=== PATIENT | female | born 2000 | race Caucasian/White ===

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

== ENCOUNTER 2018-02-10 22:45 | Emergency (ER) | payer BC ==
[2018-02-10] MEDS ORDERED: MAGNE/ALUM HYDROXD 30 ML UCUP ONE (23:37)
[2018-02-10] MEDS ORDERED: PROMETHAZINE 25 MG/ML VIAL ONE (23:37)
[2018-02-10] MEDS ORDERED: LIDOCAINE VISCOUS 2% SOLN 15 ML UDC ONE (23:38)
[2018-02-10] MEDS ORDERED: NA CHLORIDE 0.9% 1,000 ML ONE (23:38)
[2018-02-10] MEDS ORDERED: PANTOPRAZOLE 40 MG INJ ONE (23:38)
[2018-02-10 23:45] LABS: Absolute Lymphocytes (CBC) 2.2 K/uL (0.7-4.9); Absolute Monocytes 0.6 K/uL (0.1-1.3); Absolute Neutrophil 4.4 K/uL (1.8-8.0); Basophils % 0.7 % (0-1.3); Eosinophils % 0.7 % (0-4.4); Hematocrit 37.6 % (36.0-45.0); MCH 30.1 pg (27.0-35.0); MPV 7.9 fL (7.6-11.3); Monocytes % 8.3 % (3.3-12.3); RBC Red Blood Cell Count 4.27 M/uL (3.86-4.86)
[2018-02-10 23:55] LABS: ALT/SGPT 15 U/L (12-78); AST/SGOT 16 U/L (15-37); Albumin 4.1 g/dL (3.4-5.0); Alkaline Phosphatase 53 U/L (45-117); BUN Blood Urea Nitrogen 9 mg/dL (7-18); Bicarbonate 26 mmol/L (21-32); Bilirubin Direct < 0.1 mg/dL (0-0.2); Bilirubin Total 0.3 mg/dL (0.2-1.0); Glucose Level 127 mg/dL (74-106); Lipase 226 U/L (73-393); Potassium 3.6 mmol/L (3.5-5.1); Sodium Level 139 mmol/L (136-145)
[2018-02-11] MEDS ORDERED: SUCRALFATE 1GM/10ML UCUP ONE
--- NOTE | 2018-02-11 00:32 | EDPHYS ---
Physician Documentation [facility] Name: Cadence Sommer Age: 17 yrs Sex: Female : 2000 Arrival Date: 02/10/2018 Time: 22:46 Bed 13 Private MD: ED Physician Víctor Sharpe HPI: 02/10 23:20 This 17 yrs old Female presents to ER via Ambulatory with complaints of cp Abdominal Pain. 23:20 The patient presents with abdominal pain in the epigastric area, in the upper abdomen. cp 23:20 Onset: The symptoms/episode began/occurred chronically. cp 23:20 The symptoms do not radiate. Associated signs and symptoms: Pertinent positives: cp nausea, Pertinent negatives: blood in stools, chest pain, constipation, diarrhea, dysuria, fever, vomiting. The symptoms are described as sharp. The patient has experienced similar episodes in the past, chronically. 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 - Social history:: Smoking status: Patient/guardian denies using tobacco, Patient/guardian denies using alcohol. - Ebola Screening: : No symptoms or risks identified at this time. ROS: 23:25 Constitutional: Negative for body aches, chills, fever, poor PO intake. cp 23:25 Eyes: Negative for injury, pain, redness, and discharge. cp 23:25 ENT: Negative for drainage from ear(s), ear pain, sore throat, difficulty swallowing, difficulty handling secretions. 23:25 Cardiovascular: Negative for chest pain, edema, palpitations. 23:25 Respiratory: Negative for cough, shortness of breath, wheezing. 23:25 Abdomen/GI: Positive for abdominal pain, nausea, Negative for vomiting, diarrhea, constipation, anorexia, dysphagia, black/tarry stool, rectal bleeding. 23:25 Back: Negative for pain at rest, pain with movement, radiated pain. 23:25 : Negative for urinary symptoms. 23:25 Skin: Negative for cellulitis, rash. 23:25 Neuro: Negative for altered mental status, headache, weakness. 23:25 All other systems are negative. Exam: 23:40 Constitutional: The patient appears in no acute distress, alert, awake, non-toxic, well cp developed, thin 23:40 Head/Face: Normocephalic, atraumatic. cp 23:40 Eyes: Periorbital structures: appear normal, Conjunctiva: normal, no exudate, no injection, Lids and lashes: appear normal, bilaterally. 23:40 ENT: External ear(s): are unremarkable, Ear canal(s): are normal, clear, TM's: dullness, bilaterally, Nose: is normal, Mouth: Lips: moist, Oral mucosa: pink and intact, moist, Posterior pharynx: is normal, airway is patent, no erythema, no exudate. 23:40 Chest/axilla: Inspection: normal, Palpation: is normal, no crepitus, no tenderness. 23:40 Cardiovascular: Rate: tachycardic, Rhythm: regular. 23:40 Respiratory: the patient does not display signs of respiratory distress, Respirations: normal, no use of accessory muscles, no retractions, no splinting, no tachypnea, labored breathing, is not present, Breath sounds: are clear throughout, no decreased breath sounds, no stridor, no wheezing. 23:40 Abdomen/GI: Inspection: abdomen appears normal, Bowel sounds: active, all quadrants, Palpation: soft, in all quadrants, moderate abdominal tenderness, in the epigastric area, right upper quadrant and left upper quadrant, rebound tenderness, is not appreciated, voluntary guarding, is elicited in the epigastric area, right upper quadrant and left upper quadrant. 23:40 Back: pain, is absent, ROM is normal. 23:40 Skin: cellulitis, is not appreciated, no rash present. 23:40 Neuro: Orientation: to person, place \T\ time. Mentation: lucid, able to follow commands, Cerebellar function: is grossly normal, Motor: moves all fours, strength is normal, Sensation: no obvious gross deficits. Vital Signs: 23:07 BP 130 / 59; Pulse 103; Resp 18; Temp 97.8; Pulse Ox 98% on R/A; Weight 47.63 kg (R); jb4 Height 5 ft. 3 in. (160.02 cm) (R); Pain 10/10; 10/01 00:42 BP 115 / 81; Pulse 78; Resp 18; Pulse Ox 100% on R/A; jb4 02/10 23:07 Body Mass Index 18.60 (47.63 kg, 160.02 cm) jb4 MDM: 02/10 22:56 Patient medically screened. [facility] 02/11 00:00 Differential diagnosis: cholecystitis, Cholelithiasis, gastritis, pancreatitis, Peptic cp Ulcer Disease, Perf. Duodenal Ulcer, Perf. Gastric Ulcer, Ureterolithiasis, urinary tract infection. 00:29 ED course: VSS. Pain markedly improved, labs reviewed and negative for significant cp findings. 00:30 Data reviewed: vital signs, nurses notes, lab test result(s), and as a result, I will cp discharge patient. 00:30 Counseling: I had a detailed discussion with the patient and/or guardian regarding: the cp historical points, exam findings, and any diagnostic results supporting the discharge/admit diagnosis, lab results, to return to the emergency department if symptoms worsen or persist or if there are any questions or concerns that arise at home. Response to treatment: the patient's symptoms have markedly improved after treatment. 02/10 23:11 Order name: Basic Metabolic Panel; Complete Time: 00:08 cp 02/11 00:08 Interpretation: Normal except: GLUC 127. cp 02/10 23:11 Order name: CBC with Diff; Complete Time: 00:08 cp 02/10 23:11 Order name: Creatinine for Radiology; Complete Time: 00:08 cp 02/10 23:11 Order name: Hepatic Function; Complete Time: 00:08 cp 02/11 00:08 Interpretation: Normal except: GLOB 3.9. cp 02/10 23:11 Order name: Lipase; Complete Time: 00:08 cp 02/10 23:25 Order name: Urine Dipstick--Ancillary (enter results) ms 02/10 23:11 Order name: IV Saline Lock; Complete Time: 23:26 cp 02/10 23:25 Order name: Urine --Ancillary (enter results) ms 02/10 23:11 Order name: Labs collected and sent; Complete Time: 23:26 cp 02/10 23:11 Order name: Urine Dipstick-Ancillary (obtain specimen); Complete Time: 23: cp 02/10 23:11 Order name: Urine Test (obtain specimen); Complete Time: 23:26 cp 02/11 00:09 Order name: PO challenge; Complete Time: 00:31 cp Administered Medications: 02/10 23:49 Drug: GI Cocktail without - (Maalox Suspension 30 ml, Lidocaine Liquid 2 % 15 jb4 ml) Route: PO; 02/11 00:11 Follow up: Response: No adverse reaction; Pain is decreased 4 02/10 23:49 Drug: NS 0.9% 1000 ml Route: IV; Rate: 1 bolus; Site: right antecubital; 4 02/11 00:46 Follow up: Response: No adverse reaction; IV Status: Completed infusion 4 02/10 23:50 Drug: Phenergan 25 mg Route: IVP; Site: right antecubital; jb4 02/11 00:11 Follow up: Response: No adverse reaction 4 02/10 23:50 Drug: ProTONIX 40 mg Route: IVP; Site: right antecubital; jb4 02/11 00:11 Follow up: Response: No adverse reaction; Pain is decreased 4 00:07 Drug: CarafATE 1 grams Route: PO; jb4 00:46 Follow up: Response: No adverse reaction jb4 00:41 Drug: Bentyl 20 mg Route: PO; jb4 00:46 Follow up: Response: No adverse reaction 4 Disposition: 06:43 Co-signature as Attending Physician, Víctor Sharpe MD I agree with the assessment and [facility] plan of care. Disposition: 02/11/18 00:31 Discharged to Home. Impression: Upper abdominal pain, unspecified. - Condition is Stable. - Discharge Instructions: Gastritis, Adult. - Prescriptions for Carafate 1 gram Oral Tablet - take 1 tablet by ORAL route 4 times per day take on an empty stomach, beginning on waking and last dose at bedtime. dissolve tablet in small amount warm water prior to ingestion; 100 tablet. promethazine 25 mg Oral Tablet - take 1 tablet by ORAL route every 6 hours As needed; 20 tablet. - Medication Reconciliation Form, Thank You Letter, Antibiotic Education, Prescription Opioid Use form. - Follow up: Private Physician; When: as scheduled for HIDA scan. - Problem is an acute exacerbation. - Symptoms have improved. Signatures: Dispatcher [employer] EDVíctor Ken MD MD cha Page, Corey, PA PA cp Bryson, James, RN RN jb4 Corrections: (The following items were deleted from the chart) 00:47 00:31 02/11/2018 00:31 Discharged to Home. Impression: Upper abdominal pain, jb4 unspecified. Condition is Stable. Forms are Medication Reconciliation Form, Thank You Letter, Antibiotic Education, Prescription Opioid Use. Follow up: Private Physician; When: as scheduled for HIDA scan. Problem is an acute exacerbation. Symptoms have improved. cp
--- NOTE | 2018-02-11 00:32 | ER ---
Nurse's Notes [facility] Name: Cadence Sommer Age: 17 yrs Sex: Female : 2000 Arrival Date: 02/10/2018 Time: 22:46 Bed 13 Private MD: Diagnosis: Upper abdominal pain, unspecified Presentation: 02/10 23:02 Presenting complaint: Patient states: I am fasting for a hida scan tomorrow. I have jb4 chronic gastritis and have taken my GI cocktail as prescribed and zofran and neither are helping. Transition of care: patient was not received from another setting of care. Onset of symptoms was February 10, 2018. Risk Assessment: Do you want to hurt yourself or someone else? Patient reports no desire to harm self or others. Initial Sepsis Screen: Does the patient meet any 2 criteria? HR > 90 bpm. No. Patient's initial sepsis screen is negative. Does the patient have a suspected source of infection? No. Patient's initial sepsis screen is negative. Care prior to arrival: None. 23:02 Method Of Arrival: Ambulatory jb4 23:02 Acuity: SYLVIE 3 jb4 Triage Assessment: 23:07 General: Appears in no apparent distress. uncomfortable, Behavior is calm, cooperative, jb4 appropriate for age. Pain: Complains of pain in abdomen Pain does not radiate. Pain currently is 10 out of 10 on a pain scale. at worst was 10 out of 10 on a pain scale. Quality of pain is described as sharp, Pain began 1 day ago. Is continuous. EENT: No signs and/or symptoms were reported regarding the EENT system. Neuro: Level of Consciousness is awake, alert, obeys commands, Oriented to person, place, time, situation. Cardiovascular: Patient's skin is warm and dry. Respiratory: Airway is patent Respiratory effort is even, unlabored, Respiratory pattern is regular, symmetrical. GI: Abdomen is flat, non-distended, Bowel sounds present X 4 quads. Abdomen is tender to palpation X 4 quads. : No signs and/or symptoms were reported regarding the genitourinary system. Derm: Skin is intact, Skin is pink, warm \T\ dry. Musculoskeletal: Circulation, motion, and sensation intact. 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 - Social history:: Smoking status: Patient/guardian denies using tobacco, Patient/guardian denies using alcohol. - Ebola Screening: : No symptoms or risks identified at this time. Screenin:10 Abuse screen: Denies threats or abuse. Nutritional screening: No deficits noted. jb4 Tuberculosis screening: No symptoms or risk factors identified. Fall Risk None identified. Assessment: 23:10 General: see triage assesment.. jb4 02/11 00:42 Reassessment: Patient appears in no apparent distress at this time. Patient and/or jb4 family updated on plan of care and expected duration. Pain level reassessed. Patient is alert, oriented x 3, equal unlabored respirations, skin warm/dry/pink. Patient states feeling better. Vital Signs: 02/10 23:07 BP 130 / 59; Pulse 103; Resp 18; Temp 97.8; Pulse Ox 98% on R/A; Weight 47.63 kg (R); jb4 Height 5 ft. 3 in. (160.02 cm) (R); Pain 02/20; 02/11 00:42 BP 115 / 81; Pulse 78; Resp 18; Pulse Ox 100% on R/A; jb4 02/10 23:07 Body Mass Index 18.60 (47.63 kg, 160.02 cm) jb4 ED Course: 02/10 22:46 Patient arrived in ED. ds1 22:53 Víctor Schneider PA is PHCP. cp 22:53 Víctor Sharpe MD is Attending Physician. cp 22:57 Daquan Sykes, MARGARET is Primary Nurse. jb4 23:06 Triage completed. jb4 23:07 Arm band placed on left wrist. jb4 23:10 Patient has correct armband on for positive identification. Placed in gown. Bed in low jb4 position. Call light in reach. Side rails up X 1. Pulse ox on. NIBP on. 23:10 Inserted saline lock: 20 gauge 22 gauge in right antecubital area, using aseptic jb4 technique. Blood collected. 23:10 Initial lab(s) drawn, by me, sent to lab. jb4 02/11 00:42 No provider procedures requiring assistance completed. IV discontinued, intact, jb4 bleeding controlled. Administered Medications: 02/10 23:49 Drug: GI Cocktail without - (Maalox Suspension 30 ml, Lidocaine Liquid 2 % 15 jb4 ml) Route: PO; 02/11 00:11 Follow up: Response: No adverse reaction; Pain is decreased jb4 02/10 23:49 Drug: NS 0.9% 1000 ml Route: IV; Rate: 1 bolus; Site: right antecubital; jb4 02/11 00:46 Follow up: Response: No adverse reaction; IV Status: Completed infusion jb4 02/10 23:50 Drug: Phenergan 25 mg Route: IVP; Site: right antecubital; jb4 02/11 00:11 Follow up: Response: No adverse reaction jb4 02/10 23:50 Drug: ProTONIX 40 mg Route: IVP; Site: right antecubital; jb4 02/11 00:11 Follow up: Response: No adverse reaction; Pain is decreased jb4 00:07 Drug: CarafATE 1 grams Route: PO; jb4 00:46 Follow up: Response: No adverse reaction jb4 00:41 Drug: Bentyl 20 mg Route: PO; jb4 00:46 Follow up: Response: No adverse reaction jb4 Outcome: 00:31 Discharge ordered by . cecilia 00:42 Discharged to home ambulatory. jb4 00:42 Condition: stable 00:42 Discharge instructions given to patient, family, Instructed on discharge instructions, follow up and referral plans. medication usage, Demonstrated understanding of instructions, follow-up care, medications, Prescriptions given X 2. 00:47 Patient left the ED. jb4 Signatures: Zhanna Ye ds1 Víctor Schneider PA PA cp Daquan Sykes, RN RN jb4 Corrections: (The following items were deleted from the chart) 00:11 00:10 Response: No adverse reaction jb4 jb4 00:44 02/10 23:10 Inserted saline lock: 20 gauge 22 gauge in right antecubital area, using jb4 aseptic technique. jb4 02/11 00:44 02/10 23:46 Initial lab(s) drawn, by pr, sent to lab. jb4 jb4 02/11 00:45 02/10 23:10 Discharged to home ambulatory, jb4 jb4 02/11 23:10 Condition: stable jb4 jb4 02/11 23:10 Discharge instructions given to patient, family, Instructed on discharge jb4 instructions, follow up and referral plans. medication usage, Demonstrated understanding of instructions, follow-up care, medications, Prescriptions given X 2, jb4
[2018-02-11] MEDS ORDERED: DICYCLOMINE HCL 10 MG CAP ONE (00:39)
[2018-02-11 01:32] VITALS: TEMP 97.8
[2018-02-11 01:36] VITALS: BP 115/81; O2SAT 100
[2018-02-11 01:39] LABS: Urine Blood NEGATIVE (NEG); Urine Glucose NEGATIVE (NEG); Urine Protein TRACE (NEG)
== END 2018-02-11 00:47 | disposition home or self-care (01) ==
LOC: ER 22:45
DX: R10.10 Upper abdominal pain, unspecified (principal)
CPT/HCPCS: 36415; 80048; 80076; 81003; 81025; 83690; 85025; 96361; 96374; 96375; 99284; C9113; J2550; J7030

== ENCOUNTER 2018-03-22 18:46 | Emergency (ER) | payer BC ==
[2018-03-22] MEDS ORDERED: LIDOCAINE VISCOUS 2% SOLN 15 ML UDC ONE (20:20)
[2018-03-22] MEDS ORDERED: MAGNE/ALUM HYDROXD 30 ML UCUP ONE (20:20)
[2018-03-22 20:38] LABS: Absolute Lymphocytes (CBC) 1.9 K/uL (0.7-4.9); Absolute Monocytes 0.6 K/uL (0.1-1.3); Absolute Neutrophil 4.3 K/uL (1.8-8.0); Basophils % 0.5 % (0-1.3); Eosinophils % 0.8 % (0-4.4); Hematocrit 35.4 % (36.0-45.0); Lymphocytes % 28.3 % (15.3-44.8); MCH 29.9 pg (27.0-35.0); MCV 87.7 fL (80-100); MPV 7.8 fL (7.6-11.3); Monocytes % 8.3 % (3.3-12.3); RBC Red Blood Cell Count 4.04 M/uL (3.86-4.86)
[2018-03-22 20:49] LABS: Urine Blood 2+ (NEG); Urine Glucose NEGATIVE (NEG); Urine Protein NEGATIVE (NEG); Urine Specific Gravity >1.030 (1.005-1.030); Urine pH 5.5 (5.0-7.0)
[2018-03-22 20:56] LABS: ALT/SGPT 14 U/L (12-78); AST/SGOT 16 U/L (15-37); Albumin 3.9 g/dL (3.4-5.0); Alkaline Phosphatase 51 U/L (45-117); BUN Blood Urea Nitrogen 8 mg/dL (7-18); Bicarbonate 28 mmol/L (21-32); Bilirubin Direct 0.1 mg/dL (0-0.2); Bilirubin Total 0.2 mg/dL (0.2-1.0); Glucose Level 82 mg/dL (74-106); Lipase 185 U/L (73-393); Potassium 3.6 mmol/L (3.5-5.1); Protein, Total 7.7 g/dL (6.4-8.2); Sodium Level 143 mmol/L (136-145)
--- NOTE | 2018-03-22 21:00 | ER ---
Nurse's Notes [facility] Name: Cadence Sommer Age: 17 yrs Sex: Female : 2000 Arrival Date: 03/22/2018 Time: 18:50 Bed 20 Private MD: Bernardo Fernandez S Diagnosis: Unspecified abdominal pain Presentation: 03/22 18:57 Presenting complaint: Patient states: Chronic abdominal pain and nausea. Transition of care: patient was not received from another setting of care. Onset of symptoms was March 19, 2018. Risk Assessment: Do you want to hurt yourself or someone else? Patient reports no desire to harm self or others. Initial Sepsis Screen: Does the patient meet any 2 criteria? No. Patient's initial sepsis screen is negative. Does the patient have a suspected source of infection? No. Patient's initial sepsis screen is negative. Care prior to arrival: None. 18:57 Method Of Arrival: Ambulatory aj 18:57 Acuity: SYLVIE 3 aj Triage Assessment: 19:00 General: Appears in no apparent distress. comfortable, Behavior is calm, cooperative, aj appropriate for age. Pain: Complains of pain in right upper quadrant and left upper quadrant. Neuro: Level of Consciousness is awake, alert, obeys commands, Oriented to person, place, time, situation, Appropriate for age. Respiratory: Airway is patent Respiratory effort is even, unlabored, Respiratory pattern is regular, symmetrical. GI: Abdomen is flat, Reports upper abdominal pain, nausea. Derm: Skin is intact, is healthy with good turgor, Skin is pink, warm \T\ dry. normal. 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 - Social history:: Smoking status: Patient/guardian denies using tobacco. - Ebola Screening: : Patient negative for fever greater than or equal to 101.5 degrees Fahrenheit, and additional compatible Ebola Virus Disease symptoms Patient denies exposure to infectious person Patient denies travel to an Ebola-affected area in the 21 days before illness onset No symptoms or risks identified at this time. Screenin:48 Abuse screen: Denies threats or abuse. Nutritional screening: No deficits noted. jb4 Tuberculosis screening: No symptoms or risk factors identified. Fall Risk None identified. Assessment: 19:48 General: Appears in no apparent distress. comfortable, Behavior is calm, cooperative, jb4 appropriate for age. Pain: Complains of pain in left upper quadrant Pain does not radiate. Neuro: Level of Consciousness is awake, alert, obeys commands, Oriented to person, place, time, situation. Cardiovascular: Patient's skin is warm and dry. Respiratory: Airway is patent Respiratory effort is even, unlabored, Respiratory pattern is regular, symmetrical. GI: Abdomen is flat, non-distended, Bowel sounds present X 4 quads. Abd is soft X 4 quads Abd is non tender in umbilical area, right upper quadrant, right lower quadrant and left lower quadrant Abdomen is tender to palpation in left upper quadrant. : No signs and/or symptoms were reported regarding the genitourinary system. EENT: No signs and/or symptoms were reported regarding the EENT system. Derm: Skin is intact, Skin is pink, warm \T\ dry. Musculoskeletal: Circulation, motion, and sensation intact. 20:41 Reassessment: Patient appears in no apparent distress at this time. Patient and/or jb4 family updated on plan of care and expected duration. Pain level reassessed. Patient is alert, oriented x 3, equal unlabored respirations, skin warm/dry/pink. 21:36 Reassessment: Patient appears in no apparent distress at this time. Patient and/or jb4 family updated on plan of care and expected duration. Pain level reassessed. Patient is alert, oriented x 3, equal unlabored respirations, skin warm/dry/pink. discussed D/c, F/u with pt, denies questions or concerns. Vital Signs: 19:00 BP 122 / 69; Pulse 77; Resp 19; Temp 97.8; Pulse Ox 97% on R/A; Weight 48.08 kg; Height aj 5 ft. 3 in. (160.02 cm); 20:41 BP 112 / 68; Pulse 70; Resp 16; Pulse Ox 99% on R/A; jb4 21:36 BP 112 / 70; Pulse 64; Resp 18; Pulse Ox 98% on R/A; jb4 19:00 Body Mass Index 18.78 (48.08 kg, 160.02 cm) aj ED Course: 18:50 Patient arrived in ED. mr 18:51 Bernardo Fernandez MD is Private Physician. mr 18:58 Triage completed. aj 19:00 Arm band placed on left wrist. Patient placed in waiting room, Patient notified of wait aj time. 19:46 Mahad Cueto, RAUL is PHCP. pm1 19:46 Basil Swan MD is Attending Physician. pm1 19:48 Daquan Sykes RN is Primary Nurse. jb4 19:48 Patient has correct armband on for positive identification. Pulse ox on. NIBP on. jb4 20:00 Missed attempt(s): 20 gauge in right forearm. jb4 20:10 Initial lab(s) drawn, by nh, sent to lab. Inserted saline lock: 20 gauge in left jb4 antecubital area, using aseptic technique. Blood collected. 20:59 Bsail Wallace MD is Referral Physician. pm1 21:36 No provider procedures requiring assistance completed. IV discontinued, intact, jb4 bleeding controlled. Administered Medications: 20:10 Drug: GI Cocktail without - (Maalox Suspension 30 ml, Lidocaine Liquid 2 % 15 jb4 ml) Route: PO; 21:13 Follow up: Response: No adverse reaction; Pain is decreased jb4 21:22 Drug: Pepcid 20 mg Route: IVP; Site: left antecubital; jb4 21:23 Follow up: Response: No adverse reaction jb4 21:23 Drug: CarafATE 1 grams Route: PO; jb4 21:23 Follow up: Response: No adverse reaction jb4 Outcome: 20:59 Discharge ordered by . pm1 21:38 Discharged to home ambulatory. jb4 21:38 Condition: stable 21:38 Discharge instructions given to patient, Instructed on discharge instructions, follow up and referral plans. medication usage, Demonstrated understanding of instructions, follow-up care, medications, Prescriptions given X 1. 21:39 Patient left the ED. jb4 Signatures: Lizeth Alas RN RN aj Rivera, Mary mr Mahad Cueto, SPEECH THERAPY DIRECTOR SPEECH THERAPY DIRECTOR pm1 Daquan Sykes RN RN jb4 Corrections: (The following items were deleted from the chart) 19:01 19:00 Arm band placed on left wrist. Patient placed in an exam room, chet rosenberg
--- NOTE | 2018-03-22 21:00 | EDPHYS ---
Physician Documentation [facility] Name: Cadence Sommer Age: 17 yrs Sex: Female : 2000 Arrival Date: 03/22/2018 Time: 18:50 Bed 20 Private MD: Bernardo Fernandez S ED Physician Sosa, Basil HPI: 03/22 19:56 This 17 yrs old Female presents to ER via Ambulatory with complaints of pm1 Abdominal Pain. 19:56 The patient presents with abdominal pain in the epigastric area. Onset: The pm1 symptoms/episode began/occurred 8 month(s) ago. The symptoms do not radiate. Associated signs and symptoms: Pertinent negatives: nausea, vomiting, and diarrhea, chest pain, constipation, fever, shortness of breath. The symptoms are described as achy, burning. Modifying factors: The symptoms are alleviated by GI cocktail in the ER. Her home prescription GI Cocktail does not work at all. the symptoms are aggravated by food. Severity of pain: in the emergency department the pain is unchanged. The patient has experienced similar episodes in the past, chronically. The patient has been recently seen by a physician: Dr. Wallace. Patient has had a negative HIDA scan less than a month ago. EGD shows chronic gastritis. 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 - Social history:: Smoking status: Patient/guardian denies using tobacco. - Ebola Screening: : Patient negative for fever greater than or equal to 101.5 degrees Fahrenheit, and additional compatible Ebola Virus Disease symptoms Patient denies exposure to infectious person Patient denies travel to an Ebola-affected area in the 21 days before illness onset No symptoms or risks identified at this time. ROS: 19:56 Constitutional: Negative for fever, chills, and weight loss, Eyes: Negative for injury, pm1 pain, redness, and discharge, ENT: Negative for injury, pain, and discharge, Neck: Negative for injury, pain, and swelling, Cardiovascular: Negative for chest pain, palpitations, and edema, Respiratory: Negative for shortness of breath, cough, wheezing, and pleuritic chest pain. 19:56 Back: Negative for injury and pain, : Negative for injury, bleeding, discharge, and swelling, MS/Extremity: Negative for injury and deformity, Skin: Negative for injury, rash, and discoloration, Neuro: Negative for headache, weakness, numbness, tingling, and seizure. 19:56 Abdomen/GI: Positive for abdominal pain, Negative for nausea, vomiting, and diarrhea. Exam: 19:56 Constitutional: This is a well developed, well nourished patient who is awake, alert, pm1 and in no acute distress. Head/Face: Normocephalic, atraumatic. Eyes: Pupils equal round and reactive to light, extra-ocular motions intact. Lids and lashes normal. Conjunctiva and sclera are non-icteric and not injected. Cornea within normal limits. Periorbital areas with no swelling, redness, or edema. ENT: Nares patent. No nasal discharge, no septal abnormalities noted. Tympanic membranes are normal and external auditory canals are clear. Oropharynx with no redness, swelling, or masses, exudates, or evidence of obstruction, uvula midline. Mucous membranes moist. Neck: Trachea midline, no thyromegaly or masses palpated, and no cervical lymphadenopathy. Supple, full range of motion without nuchal rigidity, or vertebral point tenderness. No Meningismus. Chest/axilla: Normal chest wall appearance and motion. Nontender with no deformity. No lesions are appreciated. Cardiovascular: Regular rate and rhythm with a normal S1 and S2. No gallops, murmurs, or rubs. Normal PMI, no JVD. No pulse deficits. Respiratory: Lungs have equal breath sounds bilaterally, clear to auscultation and percussion. No rales, rhonchi or wheezes noted. No increased work of breathing, no retractions or nasal flaring. 19:56 Back: No spinal tenderness. No costovertebral tenderness. Full range of motion. Skin: Warm, dry with normal turgor. Normal color with no rashes, no lesions, and no evidence of cellulitis. MS/ Extremity: Pulses equal, no cyanosis. Neurovascular intact. Full, normal range of motion. 19:56 Abdomen/GI: Inspection: abdomen appears normal, Bowel sounds: normal, Palpation: abdomen is soft and non-tender, mass, is not appreciated, rebound tenderness, is not appreciated. 19:56 Neuro: Orientation: is normal, Motor: is normal, Sensation: is normal, no obvious gross deficits. Vital Signs: 19:00 BP 122 / 69; Pulse 77; Resp 19; Temp 97.8; Pulse Ox 97% on R/A; Weight 48.08 kg; Height aj 5 ft. 3 in. (160.02 cm); 20:41 BP 112 / 68; Pulse 70; Resp 16; Pulse Ox 99% on R/A; jb4 21:36 BP 112 / 70; Pulse 64; Resp 18; Pulse Ox 98% on R/A; jb4 19:00 Body Mass Index 18.78 (48.08 kg, 160.02 cm) aj MDM: 19:48 Patient medically screened. pm1 19:54 Data reviewed: vital signs. Data interpreted: Pulse oximetry: on room air is 97 %. pm1 Interpretation: normal. 20:58 Counseling: I had a detailed discussion with the patient and/or guardian regarding: the pm1 historical points, exam findings, and any diagnostic results supporting the discharge/admit diagnosis, lab results, the need for outpatient follow up, for definitive care, a bid writer, to return to the emergency department if symptoms worsen or persist or if there are any questions or concerns that arise at home. 03/22 19:55 Order name: Basic Metabolic Panel; Complete Time: 20:58 pm1 03/22 19:55 Order name: CBC with Diff; Complete Time: 20:53 pm1 03/22 19:55 Order name: Hepatic Function; Complete Time: 20:58 pm1 03/22 19:55 Order name: Lipase; Complete Time: 20:58 pm1 03/22 20:33 Order name: Urine Dipstick--Ancillary (enter results); Complete Time: 20:53 ms 03/22 20:33 Order name: Urine --Ancillary (enter results); Complete Time: 20:53 ms 03/22 19:55 Order name: IV Saline Lock; Complete Time: 20:32 pm1 03/22 19:55 Order name: Labs collected and sent; Complete Time: 20:32 pm1 03/22 19:55 Order name: Urine Dipstick-Ancillary (obtain specimen); Complete Time: 20:04 pm1 03/22 19:55 Order name: Urine Test (obtain specimen); Complete Time: 20:04 pm1 Administered Medications: 20:10 Drug: GI Cocktail without - (Maalox Suspension 30 ml, Lidocaine Liquid 2 % 15 jb4 ml) Route: PO; 21:13 Follow up: Response: No adverse reaction; Pain is decreased jb4 21:22 Drug: Pepcid 20 mg Route: IVP; Site: left antecubital; jb4 21:23 Follow up: Response: No adverse reaction jb4 21:23 Drug: CarafATE 1 grams Route: PO; jb4 21:23 Follow up: Response: No adverse reaction jb4 Disposition: 03/23 04:03 Co-signature as Attending Physician, Basil Swan MD I agree with the assessment and wa plan of care. Disposition: 03/22/18 20:59 Discharged to Home. Impression: Unspecified abdominal pain. - Condition is Stable. - Discharge Instructions: Abdominal Pain, Adult. - Prescriptions for Pepcid 20 mg Oral Tablet - take 1 tablet by ORAL route every 12 hours for 10 days; 20 tablet. - Medication Reconciliation Form, Thank You Letter, Antibiotic Education form. - Follow up: Emergency Department; When: As needed; Reason: Worsening of condition. Follow up: Basil Wallace MD; When: 2 - 3 days; Reason: Recheck today's complaints, Continuance of care, Re-evaluation by your physician. - Problem is new. - Symptoms have improved. Signatures: Dispatcher [employer] Lizeth Monique RN RN aj Marinas, Patrick, NP [employer] SALES BEAUTY ADVISOR pm1 Daquan Sykes RN RN [email or web address] Basil Swan MD MD wa Corrections: (The following items were deleted from the chart) 03/22 21:39 20:59 03/22/2018 20:59 Discharged to Home. Impression: Unspecified abdominal pain. jb4 Condition is Stable. Forms are Medication Reconciliation Form, Thank You Letter, Antibiotic Education, Prescription Opioid Use. Follow up: Emergency Department; When: As needed; Reason: Worsening of condition. Follow up: Basil Wallace; When: 2 - 3 days; Reason: Recheck today's complaints, Continuance of care, Re-evaluation by your physician. Problem is new. Symptoms have improved. pm1
[2018-03-22] MEDS ORDERED: SUCRALFATE 1 GM TABLET ONE (21:24)
[2018-03-22] MEDS ORDERED: FAMOTIDINE 20 MG/2 ML VIAL IV ONE (21:26)
[2018-03-23 00:57] VITALS: TEMP 97.8
[2018-03-23 00:59] VITALS: BP 112/70; O2SAT 98
== END 2018-03-22 21:39 | disposition home or self-care (01) ==
LOC: ER 18:46
DX: R10.13 Epigastric pain (principal)
CPT/HCPCS: 36415; 80048; 80076; 81003; 81025; 83690; 85025; 96374; 99284

== ENCOUNTER 2018-04-09 20:40 | Emergency (ER) | payer BC ==
--- NOTE | 2018-04-09 22:59 | ER ---
Nurse's Notes [facility] Name: Cadence Sommer Age: 18 yrs Sex: Female : 2000 Arrival Date: 04/09/2018 Time: 20:42 Bed 20 Private MD: Bernardo Fenrandez S Diagnosis: Pain in right wrist;Chronic pain syndrome Presentation: 04/09 21:23 Presenting complaint: Patient states: "I came here in June because I broke my aj1 wrist. I was in a cast until July. In January my hands was still hurting, I saw a hand specialist and my wrist was still broken. I just got my cast off at the beginning of March. Now my wrist is swollen and it hurts to hold a fork or anything. I have osteogenesis imperfecta so I break my bones doing almost nothing" Reports pain to right wrist. Transition of care: patient was not received from another setting of care. Onset of symptoms was April 09, 2018. Risk Assessment: Do you want to hurt yourself or someone else? Patient reports no desire to harm self or others. Initial Sepsis Screen: Does the patient meet any 2 criteria? No. Patient's initial sepsis screen is negative. Does the patient have a suspected source of infection? No. Patient's initial sepsis screen is negative. Care prior to arrival: None. 21:23 Method Of Arrival: Ambulatory aj1 21:23 Acuity: SYLVIE 4 aj1 Triage Assessment: 21:29 General: Appears in no apparent distress. uncomfortable, Behavior is calm, cooperative, aj1 appropriate for age. Pain: Complains of pain in right wrist Pain currently is 6 out of 10 on a pain scale. Neuro: Level of Consciousness is awake, alert, obeys commands. Cardiovascular: Patient's skin is warm and dry. Respiratory: Airway is patent Respiratory effort is even, unlabored, Respiratory pattern is regular, symmetrical. Musculoskeletal: Range of motion: intact in all extremities. Injury Description: Patient denies injury. 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 - Social history:: Smoking status: Patient/guardian denies using tobacco. - Ebola Screening: : Patient denies travel to an Ebola-affected area in the 21 days before illness onset. Screenin:05 Abuse screen: Denies threats or abuse. Denies injuries from another. Nutritional ak1 screening: No deficits noted. Tuberculosis screening: No symptoms or risk factors identified. Fall Risk None identified. Assessment: 22:05 General: Appears in no apparent distress. Behavior is calm, cooperative. Pain: ak1 Complains of pain in right wrist. Neuro: No deficits noted. Cardiovascular: No deficits noted. Respiratory: No deficits noted. GI: No signs and/or symptoms were reported involving the gastrointestinal system. : No signs and/or symptoms were reported regarding the genitourinary system. EENT: No signs and/or symptoms were reported regarding the EENT system. Derm: No signs and/or symptoms reported regarding the dermatologic system. Musculoskeletal: Reports pain in right wrist pt seen by her specialist yesterday was told she needed pain management with no xrays done. pt requested xrays tonight. Vital Signs: 21:29 BP 118 / 79; Pulse 83; Resp 18; Temp 98.2; Pulse Ox 100% on R/A; Weight 48.53 kg (R); aj1 Height 5 ft. 3 in. (160.02 cm) (R); Pain 6/10; 21:29 Body Mass Index 18.95 (48.53 kg, 160.02 cm) aj1 ED Course: 20:42 Patient arrived in ED. es 20:43 Bernardo Fernandez MD is Private Physician. es 21:28 Triage completed. aj1 21:29 Arm band placed on Patient placed in waiting room, Patient notified of wait time. aj1 22:02 Faraz Robertson, MARGARET is Primary Nurse. la1 22:05 Patient has correct armband on for positive identification. Bed in low position. Call ak1 light in reach. Adult w/ patient. 22:11 Zoran Yates MD is Attending Physician. gs 22:36 Wrist Right 3 View XRAY In Process Unspecified. EDMS 23:07 No provider procedures requiring assistance completed. Patient did not have IV access la1 during this emergency room visit. Administered Medications: No medications were administered Outcome: 22:58 Discharge ordered by . paolo 23:07 Discharged to home ambulatory. la1 23:07 Condition: stable 23:07 Discharge instructions given to patient, friend, Instructed on discharge instructions, follow up and referral plans. Demonstrated understanding of instructions, follow-up care. 23:07 Patient left the ED. la1 Signatures: Dispatcher [employer] Daisy Sneed RN RN aj1 Shilpa Land Lee, RN RN la1 Vicky Miller RN RN ak1 Zoran Yates MD MD gs
--- NOTE | 2018-04-09 22:59 | EDPHYS ---
Physician Documentation [facility] Name: Cadence Sommer Age: 18 yrs Sex: Female : 2000 Arrival Date: 04/09/2018 Time: 20:42 Bed 20 Private MD: Bernardo Fernandez S ED Physician Zoran Yates HPI: 04/09 22:55 This 18 yrs old Female presents to ER via Ambulatory with complaints of Wrist gs Injury. 22:55 The patient or guardian reports pain. Context: chronic, previous fracture. Onset: The gs symptoms/episode began/occurred 2 week(s) ago. Modifying factors: The symptoms are alleviated by nothing, the symptoms are aggravated by nothing. The patient has experienced similar episodes in the past, chronically. 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 - Social history:: Smoking status: Patient/guardian denies using tobacco. - Ebola Screening: : Patient denies travel to an Ebola-affected area in the 21 days before illness onset. ROS: 22:55 All other systems are negative. gs Exam: 22:55 Cardiovascular: Regular rate and rhythm with a normal S1 and S2. No gallops, murmurs, gs or rubs. Normal PMI, no JVD. No pulse deficits. Respiratory: Lungs have equal breath sounds bilaterally, clear to auscultation and percussion. No rales, rhonchi or wheezes noted. No increased work of breathing, no retractions or nasal flaring. Abdomen/GI: Soft, non-tender, with normal bowel sounds. No distension or tympany. No guarding or rebound. No evidence of tenderness throughout. 22:55 Constitutional: The patient appears alert, awake. 22:55 Musculoskeletal/extremity: Extremities: noted in the dorsal aspect of right wrist: tenderness, distal ulna tender no swelling, ROM: intact in all extremities, Circulation is intact in all extremities. Vital Signs: 21:29 BP 118 / 79; Pulse 83; Resp 18; Temp 98.2; Pulse Ox 100% on R/A; Weight 48.53 kg (R); aj1 Height 5 ft. 3 in. (160.02 cm) (R); Pain 6/10; 21:29 Body Mass Index 18.95 (48.53 kg, 160.02 cm) aj1 MDM: 22:40 Patient medically screened. 22:55 Data reviewed: vital signs, nurses notes. Counseling: I had a detailed discussion with gs the patient and/or guardian regarding: the historical points, exam findings, and any diagnostic results supporting the discharge/admit diagnosis, radiology results, the need for outpatient follow up, a hand specialist, a orthopedic surgeon. 04/09 21:32 Order name: Wrist Right 3 View XRAY aj1 Administered Medications: No medications were administered Disposition: 04/09/18 22:58 Discharged to Home. Impression: Pain in right wrist, Chronic pain syndrome. - Condition is Stable. - Discharge Instructions: Chronic Pain, Wrist Pain. - Medication Reconciliation Form, Thank You Letter, Antibiotic Education, Prescription Opioid Use form. - Follow up: Private Physician; When: 2 - 3 days; Reason: Re-evaluation by your physician. - Problem is chronic. - Symptoms are unchanged. Signatures: Dispatcher [employer] EDDaisy Alexandra RN RN aj1 Faraz Robertson RN RN la1 Zoran Yates MD MD gs Corrections: (The following items were deleted from the chart) 23:07 22:58 04/09/2018 22:58 Discharged to Home. Impression: Pain in right wrist; Chronic la1 pain syndrome. Condition is Stable. Forms are Medication Reconciliation Form, Thank You Letter, Antibiotic Education, Prescription Opioid Use. Follow up: Private Physician; When: 2 - 3 days; Reason: Re-evaluation by your physician. Problem is chronic. Symptoms are unchanged.
--- NOTE | 2018-04-10 07:48 | RAD REPORT ---
EXAM DESCRIPTION: RAD - Wrist Right 3 View - 04/09/2018 10:35 pm CLINICAL HISTORY: Right wrist pain FINDINGS: The transverse lucencies are present within the distal radius and ulna. These could repres ent unfused growth plates or nondisplaced fractures. If clinically indicated further evaluation with MRI could be obtained No dislocation is seen
[2018-04-10 10:13] VITALS: BP 118/79; TEMP 98.2; O2SAT 100
== END 2018-04-09 23:07 | disposition home or self-care (01) ==
LOC: ER 20:40
DX: G89.4 Chronic pain syndrome (principal); D64.9 Anemia, unspecified
CPT/HCPCS: 99283

== ENCOUNTER 2018-06-04 22:40 | Emergency (ER) | payer BC ==
--- OUTSIDE RECORDS SUMMARY | 2018-06-04 22:42 | XMS REPORT ---
:2000 [facility] [address] [place] [address] Dr. Nichols[address] [place] [id number] Care Team Providers Name Role Phone Unavailable Unavailable Unavailable Problems This patient has no known problems. Allergies, Adverse Reactions, Alerts This patient has no known allergies or adverse reactions. Medications This patient has no known medications.
[2018-06-05 00:12] LABS: Absolute Lymphocytes (CBC) 2.4 K/uL (0.7-4.9); Absolute Monocytes 0.9 K/uL (0.1-1.3); Absolute Neutrophil 4.4 K/uL (1.8-8.0); Basophils % 0.6 % (0-1.3); Eosinophils % 0.4 % (0-4.4); Hematocrit 31.9 % (36.0-45.0); Lymphocytes % 31.1 % (15.3-44.8); MPV 8.3 fL (7.6-11.3); Monocytes % 11.3 % (3.3-12.3); RBC Red Blood Cell Count 3.78 M/uL (3.86-4.86)
[2018-06-05 00:39] LABS: ALT/SGPT 14 U/L (12-78); AST/SGOT 13 U/L (15-37); Albumin 3.8 g/dL (3.4-5.0); Alkaline Phosphatase 51 U/L (45-117); BUN Blood Urea Nitrogen 7 mg/dL (7-18); Bicarbonate 26 mmol/L (21-32); Bilirubin Direct < 0.1 mg/dL (0-0.2); Bilirubin Total 0.2 mg/dL (0.2-1.0); Glucose Level 93 mg/dL (74-106); Magnesium 1.9 mg/dL (1.8-2.4); Potassium 3.5 mmol/L (3.5-5.1); Protein, Total 7.4 g/dL (6.4-8.2); Sodium Level 141 mmol/L (136-145); Troponin (Emerg Dept Use Only) < 0.02 ng/mL (0.0-0.045)
[2018-06-05] MEDS ORDERED: NA CHLORIDE 0.9% 1,000 ML ONE (00:57)
--- NOTE | 2018-06-05 01:44 | ER ---
Nurse's Notes [facility] Name: Cadence Sommer Age: 18 yrs Sex: Female : 2000 Arrival Date: 06/04/2018 Time: 22:43 Bed 20 Private MD: Bernardo Fernandez S Diagnosis: Other chest pain;Palpitations;Dizziness Presentation: 06/04 22:54 Presenting complaint: Patient states: Feeling chest heaviness, dizziness all day; lp1 States "I've felt similar to this when my magnesium was low". Transition of care: patient was not received from another setting of care. Onset of symptoms was June 04, 2018. Risk Assessment: Do you want to hurt yourself or someone else? Patient reports no desire to harm self or others. Initial Sepsis Screen: Does the patient meet any 2 criteria? No. Patient's initial sepsis screen is negative. Does the patient have a suspected source of infection? No. Patient's initial sepsis screen is negative. Care prior to arrival: None. 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 - Social history:: Smoking status: Patient/guardian denies using tobacco. - Ebola Screening: : No symptoms or risks identified at this time. Screenin:58 Abuse screen: Denies threats or abuse. Denies injuries from another. Nutritional lp1 screening: No deficits noted. Tuberculosis screening: No symptoms or risk factors identified. Fall Risk None identified. Assessment: 23:08 General: Appears in no apparent distress. comfortable, slender, well groomed, well eb1 developed, Behavior is calm, cooperative, appropriate for age, Denies fever, feeling ill, fatigue, chills. Pain: Complains of pain in chest Pain currently is 2 out of 10 on a pain scale. Neuro: No deficits noted. Cardiovascular: No deficits noted. Respiratory: No deficits noted. GI: No deficits noted. : No deficits noted. EENT: No deficits noted. Derm: No deficits noted. Musculoskeletal: No deficits noted. 23:09 General: Patient states after running on the treadmill last night they began to have eb1 chest discomfort and dizziness. . 06/05 00:00 Reassessment: Patient appears in no apparent distress at this time. No changes from eb1 previously documented assessment. Patient and/or family updated on plan of care and expected duration. Pain level reassessed. Patient is alert, oriented x 3, equal unlabored respirations, skin warm/dry/pink. Patient states symptoms have not improved. 00:54 Reassessment: Patient appears in no apparent distress at this time. No changes from eb1 previously documented assessment. Patient and/or family updated on plan of care and expected duration. Pain level reassessed. Patient is alert, oriented x 3, equal unlabored respirations, skin warm/dry/pink. 02:06 Reassessment: Patient appears in no apparent distress at this time. Patient and/or jd3 family updated on plan of care and expected duration. Pain level reassessed. Patient is alert, oriented x 3, equal unlabored respirations, skin warm/dry/pink. Patient states feeling better. Vital Signs: 06/04 22:58 BP 122 / 88; Pulse 73; Resp 16; Temp 98.5(O); Pulse Ox 100% on R/A; Weight 49.9 kg; lp1 Height 5 ft. 4 in. (162.56 cm); Pain 2/10; 06/05 00:00 BP 120 / 72; Pulse 74; Resp 20; Pulse Ox 99% ; eb1 00:50 BP 112 / 71 LA Supine (auto/reg); eb1 00:51 BP 119 / 85 LA Sitting (auto/reg); eb1 00:51 BP 117 / 72 LA Standing (auto/reg); eb1 00:52 BP 112 / 71; Pulse 70; Resp 20; Temp 98.1; Pulse Ox 99% ; eb1 02:04 BP 124 / 71; Pulse 69; Resp 17 S; Pulse Ox 100% on R/A; jd3 06/04 22:58 Body Mass Index 18.88 (49.90 kg, 162.56 cm) lp1 ED Course: 01/22 22:43 Patient arrived in ED. es 22:44 Bernardo Fernandez MD is Private Physician. es 22:57 Triage completed. lp1 22:58 Arm band placed on left wrist. lp1 23:02 Víctor Schneider PA is PHCP. cp 23:02 Johan Herr MD is Attending Physician. cp 06/05 00:38 Inserted saline lock: in left antecubital area, using aseptic technique. placed by Yury jd3 quality assurance qa lab technician. 02:06 No provider procedures requiring assistance completed. IV discontinued, intact, jd3 bleeding controlled, No redness/swelling at site. Pressure dressing applied. 02:07 Patient has correct armband on for positive identification. Bed in low position. Call jd3 light in reach. Side rails up X 1. Adult w/ patient. 04:40 XRAY Chest (1 view) In Process Unspecified. EDMS Administered Medications: 00:49 Drug: NS 0.9% 1000 ml Route: IV; Rate: 1 bolus; Site: left antecubital; eb1 01:27 Follow up: IV Status: Completed infusion; IV Intake: 999ml eb1 Intake: 01:27 IV: 999ml; Total: 999ml. eb1 Outcome: 01:43 Discharge ordered by MD. cp 02:07 Discharged to home ambulatory, with family. jd3 02:07 Condition: stable 02:07 Discharge instructions given to patient, family, Instructed on discharge instructions, follow up and referral plans. Demonstrated understanding of instructions, follow-up care. 02:08 Patient left the ED. jd3 Signatures: Dispatcher [employer] EDMS Shilpa Land Laura RN RN lp1 Víctor Schneider PA PA cp Davies, Jonathon, RN RN jJohanna Ngo RN RN eb1 Corrections: (The following items were deleted from the chart) 02:07 00:00 Inserted saline lock: in left antecubital area, using aseptic technique. placed jd3 by Yury quality assurance qa lab technician jd3
--- NOTE | 2018-06-05 01:44 | EDPHYS ---
Physician Documentation [facility] Name: Cadence Sommer Age: 18 yrs Sex: Female : 2000 Arrival Date: 06/04/2018 Time: 22:43 Bed 20 Private MD: Bernardo Fernandez S ED Physician Johan Herr HPI: 06/04 23:19 This 18 yrs old Female presents to ER via Ambulatory with complaints of cp Dizziness, Chest feel heavy, Palpitations. 23:19 The patient presents with dizziness, lightheadedness. cp 23:19 Onset: The symptoms/episode began/occurred today. cp 23:19 Associated signs and symptoms: Pertinent positives: chest heaviness, palpitations, cp Pertinent negatives: focal weakness, headache, syncope. Patient's baseline: Neuro: alert and fully oriented, Motor: no deficits, Ambulation: walks without assistance, Speech: normal. The patient has experienced similar episodes in the past, several times, today's symptoms are similar, to when the patient was apparently diagnosed with low magnesium. 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 - Social history:: Smoking status: Patient/guardian denies using tobacco. - Ebola Screening: : No symptoms or risks identified at this time. ROS: 23:30 Constitutional: Negative for body aches, chills, fever, poor PO intake. cp 23:30 Eyes: Negative for injury, pain, redness, and discharge. cp 23:30 Cardiovascular: Positive for chest pain, palpitations, Negative for edema. cp 23:30 Eyes: Negative for blurry vision, pain, redness, vision loss. cp 23:30 ENT: Negative for drainage from ear(s), ear pain, sore throat, difficulty swallowing, difficulty handling secretions. 23:30 Respiratory: Negative for cough, shortness of breath, wheezing. 23:30 Abdomen/GI: Negative for abdominal pain, nausea, vomiting, and diarrhea, constipation, black/tarry stool, rectal bleeding. 23:30 Skin: Negative for cellulitis, rash. 23:30 Neuro: Positive for dizziness, Negative for altered mental status, headache, syncope, near syncope, weakness. 23:30 All other systems are negative. Exam: 23:35 Head/Face: Normocephalic, atraumatic. cp 23:35 Constitutional: The patient appears in no acute distress, alert, awake, non-diaphoretic, non-toxic, well developed, well nourished. 23:35 Eyes: Periorbital structures: appear normal, Pupils: equal, round, and reactive to cp light and accomodation, Extraocular movements: intact throughout, Conjunctiva: normal, no exudate, no injection, Sclera: no appreciated abnormality, Lids and lashes: appear normal, bilaterally. 23:35 ENT: External ear(s): are unremarkable, Ear canal(s): are normal, clear, TM's: cp dullness, bilaterally, Nose: is normal, Mouth: Lips: moist, Oral mucosa: pink and intact, moist, Posterior pharynx: is normal, airway is patent, no erythema, no exudate, Voice: is normal. 23:35 Neck: ROM/movement: is normal, is supple, without pain, no range of motions limitations, no meningismus, no nuchal rigidity. 23:35 Chest/axilla: Inspection: normal, Palpation: is normal, no crepitus, no tenderness. 23:35 Cardiovascular: Rate: normal, Rhythm: regular, Edema: is not appreciated. 23:35 Respiratory: the patient does not display signs of respiratory distress, Respirations: normal, no use of accessory muscles, no retractions, no splinting, no tachypnea, labored breathing, is not present, Breath sounds: are clear throughout, no decreased breath sounds, no stridor, no wheezing. 23:35 Abdomen/GI: Inspection: abdomen appears normal, Bowel sounds: active, all quadrants, Palpation: abdomen is soft and non-tender, in all quadrants. 23:35 Back: pain, is absent, ROM is normal. 23:35 Skin: cellulitis, is not appreciated, no rash present. 23:35 Neuro: Orientation: to person, place \T\ time. Mentation: is normal, Cerebellar function: is grossly normal, Motor: moves all fours, strength is normal, Sensation: is normal. 23:45 ECG was reviewed by the Attending Physician. cp Vital Signs: 22:58 BP 122 / 88; Pulse 73; Resp 16; Temp 98.5(O); Pulse Ox 100% on R/A; Weight 49.9 kg; lp1 Height 5 ft. 4 in. (162.56 cm); Pain 2/10; 06/05 00:00 BP 120 / 72; Pulse 74; Resp 20; Pulse Ox 99% ; eb1 00:50 BP 112 / 71 LA Supine (auto/reg); eb1 00:51 BP 119 / 85 LA Sitting (auto/reg); eb1 00:51 BP 117 / 72 LA Standing (auto/reg); eb1 00:52 BP 112 / 71; Pulse 70; Resp 20; Temp 98.1; Pulse Ox 99% ; eb1 02:04 BP 124 / 71; Pulse 69; Resp 17 S; Pulse Ox 100% on R/A; jd3 06/04 22:58 Body Mass Index 18.88 (49.90 kg, 162.56 cm) lp1 MDM: 06/04 23:02 Patient medically screened. cp 06/05 00:00 Differential diagnosis: hypovolemia, idiopathic dizziness, , TIA, vertigo. cp 01:40 Data reviewed: vital signs, nurses notes, lab test result(s), EKG, radiologic studies, cp plain films. 01:40 Test interpretation: by ED physician or midlevel provider: ECG, plain radiologic cp studies. 01:42 Counseling: I had a detailed discussion with the patient and/or guardian regarding: the cp historical points, exam findings, and any diagnostic results supporting the discharge/admit diagnosis, lab results, radiology results, to return to the emergency department if symptoms worsen or persist or if there are any questions or concerns that arise at home. 01:42 Response to treatment: the patient's symptoms have markedly improved after treatment, cp and as a result, I will discharge patient. 06/04 23:19 Order name: Basic Metabolic Panel; Complete Time: 00:43 cp 06/05 00:43 Interpretation: Normal except: CL 109; CRE 0.53. cp 06/04 23:19 Order name: CBC with Diff; Complete Time: 00:21 cp 06/05 00:21 Interpretation: Normal except: RBC 3.78; HGB 10.8; HCT 31.9; MCV 84.4. cp 06/04 23:19 Order name: LFT's; Complete Time: 00:43 cp 06/05 00:43 Interpretation: Normal except: AST 13; GLOB 3.6. cp 06/04 23:19 Order name: Magnesium; Complete Time: 00:43 cp 06/05 00:44 Interpretation: MG 1.9; Reviewed. cp 06/04 23:19 Order name: Troponin (emerg Dept Use Only); Complete Time: 00:43 cp 06/05 00:44 Interpretation: Reviewed. cp 06/04 23:19 Order name: D-Dimer; Complete Time: 00:31 cp 06/05 00:32 Interpretation: Reviewed. cp 06/04 23:02 Order name: Orthostatics; Complete Time: 01:28 cp 06/04 23:19 Order name: XRAY Chest (1 view) cp 06/04 23:19 Order name: EKG; Complete Time: 23:20 cp 06/04 23:19 Order name: Cardiac monitoring; Complete Time: 00:37 cp 06/04 23:19 Order name: EKG - Nurse/Tech; Complete Time: 00:37 cp 06/04 23:19 Order name: IV Saline Lock; Complete Time: 00:37 cp 06/04 23:19 Order name: Labs collected and sent; Complete Time: 00:37 cp 06/04 23:19 Order name: O2 Per Protocol; Complete Time: 00:38 cp 06/04 23:19 Order name: O2 Sat Monitoring; Complete Time: 00:38 cp 06/04 23:19 Order name: Urine Dipstick-Ancillary (obtain specimen); Complete Time: 02:25 cp 06/04 23:19 Order name: Urine Test (obtain specimen); Complete Time: 02:25 cp EC/22 23:45 Rate is 73 beats/min. Rhythm is regular. NM interval is normal. QRS interval is normal. cp QT interval is normal. T waves are Inverted in lead aVR. Interpreted by me. Reviewed by me. Administered Medications: 06/05 00:49 Drug: NS 0.9% 1000 ml Route: IV; Rate: 1 bolus; Site: left antecubital; eb1 01:27 Follow up: IV Status: Completed infusion; IV Intake: 999ml eb1 Disposition: 06/05/18 01:43 Discharged to Home. Impression: Other chest pain, Palpitations, Dizziness. - Condition is Stable. - Discharge Instructions: Nonspecific Chest Pain, Dizziness, Palpitations. - Medication Reconciliation Form, Thank You Letter, Antibiotic Education, Prescription Opioid Use form. - Follow up: Private Physician; When: 1 - 2 days; Reason: Recheck today's complaints. - Problem is new. - Symptoms have improved. Signatures: Dispatcher [employer] EDMS Shanita Reynaga RN RN lp1 Víctor Schneider PA PA cp Davies, Jonathon RN RN jd3 Johanna Flores RN RN eb1 Corrections: (The following items were deleted from the chart) 02:08 01:43 06/05/2018 01:43 Discharged to Home. Impression: Other chest pain; Palpitations; jd3 Dizziness. Condition is Stable. Forms are Medication Reconciliation Form, Thank You Letter, Antibiotic Education, Prescription Opioid Use. Follow up: Private Physician; When: 1 - 2 days; Reason: Recheck today's complaints. Problem is new. Symptoms have improved. cp
[2018-06-05 03:11] VITALS: TEMP 98.1
[2018-06-05 03:12] VITALS: BP 124/71; O2SAT 100
[2018-06-05 04:19] LABS: Urine Blood NEGATIVE (NEG); Urine Glucose NEGATIVE (NEG); Urine Protein NEGATIVE (NEG); Urine Specific Gravity 1.025 (1.005-1.030)
--- NOTE | 2018-06-05 08:11 | RAD REPORT ---
EXAM DESCRIPTION: [place] Single View06/05/2018 4:41 am CLINICAL HISTORY: Chest pain COMPARISON: August 2017 FINDINGS: The lungs appear clear of acute infiltrate. The heart is normal size IMPRESSION: No acute abnormalities displayed
--- NOTE | 2018-06-05 19:48 | EKG ---
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
== END 2018-06-05 02:08 | disposition home or self-care (01) ==
LOC: ER 22:40
DX: R07.89 Other chest pain (principal); R00.2 Palpitations
CPT/HCPCS: 36415; 71045; 80048; 80076; 81003; 81025; 83735; 84484; 85025; 85379; 93005; 96360; 99284; J7030

== ENCOUNTER 2021-08-10 17:07 | Emergency (ER) | payer BC, OTHER ==
--- OUTSIDE RECORDS SUMMARY | 2021-08-10 17:10 | XMS REPORT | Continuity of Care Document ---
:2000 Author Organization [facility] t Address [address] [place] [address] Care Team Providers Name Role Phone Darleen BRIGGS JR Primary Care Physician Unavailable Kelli RAJPUT Attending Clinician Unavailable Sakina AQUINO L Attending Clinician Payers Payer Name Policy Type Policy Number Effective Date Expiration Date Cristopher VIVAS II [id number] 2020 00:00:00 Problems Condition Condition Condition Status Onset Resolution Last Treating Co mments Source Name Details Category Date Date Treatment Clinician Date Vitamin D Vitamin D Disease Active Uni vers insufficie insufficie 2-13 it y of ncy ncy 00:00: [place] 00 [facility] Right Right Disease Active 2017-05 Univers wrist pain wrist pain 1-08 it y of 00:00: [place] 00 [facility] Limitation Limitation Disease Active 2017-05 U nivers of joint of joint 1-08 [place] of motion of [place] wrist wrist Branch Osteopenia Osteopenia Disease Active U nivers of spine of spine 3-29 ity of 00:00: [place] 00 [facility] Iron Iron Disease Active Univers deficiency deficiency 3-28 it y of anemia, anemia, 00:00: [place] unspecifie unspecifie 00 Me dical d iron d iron 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 Possibly type IV however genetic testing was normal. Scoliosis Scoliosis Disease Active 2012-05 Uni vers 17 ity of 00:00: [place] 00 [facility] Allergies, Adverse Reactions, Alerts Allergy Allergy Status Severity Reaction(s) Onset Inactive Treating Comm ents Source Name Type Date Date Clinician Azithrom Drug Active Nausea 2020-05 Univers ycin Allergy and/or 2-11 ity of Vomiting 00:00: 00 Medical Branch AZITHROM DRUG Active Med N/V 2020-05 Univers YCIN INGREDI 2-11 ity of 00:00: [place] 00 Medical Branch Dicyclom Propensi Active Other - See Muscle U nivers ine Hcl ty to comments 7-20 spasms ity of adverse 00:00: [place] reaction 00 Medical s to Branch drug DICYCLOM DRUG Active Med Other-Cmnt Univ ers INE HCL INGREDI 7-20 ity of 00:00: [place] 00 Medical Branch Social History Social Habit Start Date Stop Date Quantity Comments Source Exposure to Not sure [facility] SARS-CoV-2 [facility] (event) Branch Alcohol intake 2021-06-21 2021-06-21 Current [place] of 00:00:00 00:00:00 non-drinker of [facility] alcohol [place] (finding) Tobacco Comment 2013-02-27 2013-02-27 Mom is a smoker. Uni versity of 00:00:00 00:00:00 [facility] Sex Assigned At [birth year] Universit y of 00:00:00 00:00:00 [facility] Smoking Status Start Date Stop Date Source Never smoker [facility] Branch Medications Ordered Filled Start Stop Current Ordering Indication Dosage Frequency Signature Comments Components Source Medication Medication Date Date Medication? Clinician (SIG) Name Name loratadine 2020-05 Yes 10mg Take 10 mg U nivers (CLARITIN) 2-11 by mouth ity o f 10 mg 09:12: daily. [place] tablet [address] [place] [address] loratadine 2020-05 Yes 10mg Take 10 mg U nivers (CLARITIN) 2-11 by mouth ity o f 10 mg 09:12: daily. [place] tablet 37 Medical [place] ferrous Yes 325mg Take 325 Unive rs sulfate 325 7-20 mg by ity of mg (65 mg 09:30: mouth 3 [place] iron) 21 (three) Medical tablet times Branch daily with meals. calcium 2020-0 Yes Take by Univer s carbonate 7-20 mouth. ity of (CALCIUM 09:30: [place] 500 ORAL) 21 Medical Branch ergocalcife 2020-0 Yes Take by Un jacquelyn rol, 7-20 mouth. ity of vitamin D2, 09:30: [place] (VITAMIN D 21 Medical ORAL) Branch ferrous 2020-0 Yes 325mg Take 325 Unive rs sulfate 325 7-20 mg by ity of mg (65 mg 09:30: mouth 3 [place] iron) 21 (three) Medical tablet times Branch daily with meals. calcium 2020-0 Yes Take by Univer s carbonate 7-20 mouth. ity of (CALCIUM 09:30: [place] 500 ORAL) 21 Medical Branch ergocalcife 2020-0 Yes Take by Un jacquelyn rol, 7-20 mouth. ity of vitamin D2, 09:30: [place] (VITAMIN D 21 Medical ORAL) [place] Immunizations Ordered Immunization Filled Immunization Date Status Commen ts Source Name Name Influenza Virus 2013-03-06 Completed Universit y of Vaccine (3+ yrs) 00:00:00 [facility] Influenza Virus 2013-03-06 Completed Universit y of Vaccine (3+ yrs) 00:00:00 [facility] Meningococcal 2010-12-22 Completed University of Vaccine 00:00:00 [facility] TDAP 2010-12-22 Completed University of 00:00:00 [facility] Meningococcal 2010-12-22 Completed University of Vaccine 00:00:00 [facility] TDAP 2010-12-22 Completed University of 00:00:00 [facility] DTAP 2003-04-17 Completed University of 00:00:00 [facility] DTAP 2003-04-17 Completed University of 00:00:00 [facility] MMR 2003-03-09 Completed University of 00:00:00 [facility] Polio (IPV/OPV) 2003-03-09 Completed Universit y of 00:00:00 [facility] MMR 2003-03-09 Completed University of 00:00:00 [facility] Polio (IPV/OPV) 2003-03-09 Completed Universit y of 00:00:00 [facility] DTAP 2003-01-06 Completed University of 00:00:00 [facility] MMR 2003-01-06 Completed University of 00:00:00 [facility] Polio (IPV/OPV) 2003-01-06 Completed Universit y of 00:00:00 [facility] DTAP 2003-01-06 Completed University of 00:00:00 [facility] MMR 2003-01-06 Completed University of 00:00:00 [facility] Polio (IPV/OPV) 2003-01-06 Completed Universit y of 00:00:00 [facility] Varicella 2002-05-14 Completed University of (varivax)(chicken 00:00:00 [facility] edical pox) Branch Varicella 2002-05-14 Completed University of (varivax)(chicken 00:00:00 [place] M edical pox) Branch Varicella 2001-10-12 Completed University of (varivax)(chicken 00:00:00 [facility] edical pox) Branch Varicella 2001-10-12 Completed University of (varivax)(chicken 00:00:00 [facility] edical pox) Branch DTAP 2001-08-21 Completed University of 00:00:00 [facility] HIB 4 Dose Schedule 2001-08-21 Completed Unive rsity of 00:00:00 [facility] DTAP 2001-08-21 Completed University of 00:00:00 [facility] HIB 4 Dose Schedule 2001-08-21 Completed Unive rsity of 00:00:00 [facility] DTAP 1999-08-22 Completed University of 00:00:00 [facility] HIB 4 Dose Schedule 1999-08-22 Completed Unive rsity of 00:00:00 [facility] Hep B, Adol or Pedi 1999-08-22 Completed Unive rsity of Dosage 00:00:00 [facility] DTAP 1999-08-22 Completed University of 00:00:00 [facility] HIB 4 Dose Schedule 1999-08-22 Completed Unive rsity of 00:00:00 [facility] Hep B, Adol or Pedi 1999-08-22 Completed Unive rsity of Dosage 00:00:00 [facility] DTAP 1998 Completed University of 00:00:00 [facility] HIB 4 Dose Schedule 1998 Completed Unive rsity of 00:00:00 [facility] Hep B, Adol or Pedi 2000 Completed Unive rsity of Dosage 00:00:00 [facility] Polio (IPV/OPV) 2000 Completed Universit y of 00:00:00 [facility] DTAP 1998 Completed University of 00:00:00 [facility] HIB 4 Dose Schedule 2000 Completed Unive rsity of 00:00:00 [facility] Hep B, Adol or Pedi 2000 Completed Unive rsity of Dosage 00:00:00 [facility] Polio (IPV/OPV) 2000 Completed Universit y of 00:00:00 [facility] Hep B, Adol or Pedi 2000 Completed Unive rsity of Dosage 00:00:00 [facility] Hep B, Adol or Pedi 2000 Completed Unive rsity of Dosage 00:00:00 [facility] Vital Signs Vital Name Observation Time Observation Value Comments Source Systolic blood 2021-06-21 15:59:00 115 mm[Hg] Univer sity of pressure [facility] Diastolic blood 2021-06-21 15:59:00 70 mm[Hg] Unive rsity of pressure [facility] Heart rate 2021-06-21 15:59:00 87 /min [facility] Body temperature 2021-06-21 15:59:00 36.56 [facility] Respiratory rate 2021-06-21 15:59:00 18 /min [facility] Body height 2021-06-21 15:59:00 162.6 cm [facility] Body weight 2021-06-21 15:59:00 48.081 kg [facility] BMI 2021-06-21 15:59:00 18.19 kg/m2 [facility] Procedures This patient has no known procedures. Encounters Start End Encounter Admission Attending Care Care Encounter Source Date/Time Date/Time Type Type Clinicians Facility Department ID 2021-06-27 2021-06-27 Outpatient Tiffany RAJPUT [facility] [id number] Univers 00:00:00 00:00:00 [place] [id number] [facility] 2021-06-27 2021-06-27 Outpatient Tiffany RAJPUT [facility] [id number] Univers 00:00:00 00:00:00 [place] [facility] 2021-06-21 2021-06-21 Office Sakina [facility] [id number] Univers 10:00:00 10:37:29 Visit [place] LEWIS [id number] h[facility] [id number] Felicita ANG [id number] [address] 2021-06-21 2021-06-21 Outpatient R SAKINA [facility] [id number] Univers 10:00:00 10:37:29 [place] [facility] Results This patient has no known results.
--- NOTE | 2021-08-10 19:08 | EDPHYS ---
Physician Documentation [facility] Name: Cadence Sommer Age: 21 yrs Sex: Female : 2000 Arrival Date: 08/10/2021 Time: 17:10 Bed 13 Private MD: ED Physician HPI: 08/10 18:38 This 21 yrs old Female presents to ER via Ambulatory with complaints of Chest Pain. jr8 18:38 Onset: The symptoms/episode began/occurred gradually. Associated signs and symptoms: jr8 The patient has no apparent associated signs or symptoms. Modifying factors: The patient symptoms are alleviated by nothing, the patient symptoms are aggravated by palpation. The patient has not experienced similar symptoms in the past. The patient has not recently seen a physician. This is a 21-year-old female who presented to the emergency room with complaints of midsternal sharp chest pain that comes and goes. Denies any trauma. Denies any other symptoms.. 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 - Social history:: Smoking status: Patient denies any tobacco usage or history of. ROS: 18:38 Eyes: Negative for injury, pain, redness, and discharge, ENT: Negative for injury, jr8 pain, and discharge, Neck: Negative for injury, pain, and swelling, Respiratory: Negative for shortness of breath, cough, wheezing, and pleuritic chest pain, Abdomen/GI: Negative for abdominal pain, nausea, vomiting, diarrhea, and constipation, Back: Negative for injury and pain, MS/Extremity: Negative for injury and deformity, Skin: Negative for injury, rash, and discoloration, Neuro: Negative for headache, weakness, numbness, tingling, and seizure. 18:38 Cardiovascular: Positive for chest pain, Negative for edema, orthopnea, palpitations, paroxysmal nocturnal dyspnea. Exam: 18:38 Constitutional: This is a well developed, well nourished patient who is awake, alert, jr8 and in no acute distress. Neck: Trachea midline, no thyromegaly or masses palpated, and no cervical lymphadenopathy. Supple, full range of motion without nuchal rigidity, or vertebral point tenderness. No Meningismus. Cardiovascular: Regular rate and rhythm with a normal S1 and S2. No gallops, murmurs, or rubs. Normal PMI, no JVD. No pulse deficits. Respiratory: Lungs have equal breath sounds bilaterally, clear to auscultation and percussion. No rales, rhonchi or wheezes noted. No increased work of breathing, no retractions or nasal flaring. Abdomen/GI: Soft, non-tender, with normal bowel sounds. No distension or tympany. No guarding or rebound. No evidence of tenderness throughout. Back: No spinal tenderness. No costovertebral tenderness. Full range of motion. Skin: Warm, dry with normal turgor. Normal color with no rashes, no lesions, and no evidence of cellulitis. MS/ Extremity: Pulses equal, no cyanosis. Neurovascular intact. Full, normal range of motion. Neuro: Awake and alert, GCS 15, oriented to person, place, time, and situation. Cranial nerves II-XII grossly intact. Motor strength 5/5 in all extremities. Sensory grossly intact. 18:38 Chest/axilla: Inspection: normal, Palpation: tenderness, that is mild, of the mid-sternal area, that partially reproduces the patient's complaints. Vital Signs: 17:31 BP 120 / 76; Pulse 85; Resp 17; Temp 98.0; Pulse Ox 100% ; ll1 17:45 BP 118 / 70; Pulse 71; Resp 14 S; Pulse Ox 100% on R/A; Pain 4/10; jg9 18:45 BP 151 / 78; Pulse 55; Resp 14 S; Pulse Ox 97% on R/A; Pain 4/10; jg9 19:15 BP 115 / 71; Pulse 75; Resp 16 S; Pulse Ox 98% on R/A; al4 19:42 BP 131 / 82; Pulse 79; Resp 16 S; Pulse Ox 99% on R/A; al4 19:49 BP 130 / 74; Pulse 69; Resp 16; Pulse Ox 100% ; al4 MDM: 17:29 Patient medically screened. jr8 18:38 Data reviewed: vital signs, nurses notes, EKG, radiologic studies, plain films. Data jr8 interpreted: Pulse oximetry: on room air is 100 %. Interpretation: normal. Counseling: I had a detailed discussion with the patient and/or guardian regarding: the historical points, exam findings, and any diagnostic results supporting the discharge/admit diagnosis, radiology results, the need for outpatient follow up, a family practitioner, to return to the emergency department if symptoms worsen or persist or if there are any questions or concerns that arise at home. 19:06 Special discussion: Based on the patient's history, exam, and Dx evaluation, there is jr8 no indication for emergent intervention or inpatient Tx. It is understood by the patient/guardian that if the Sx's persist or worsen they need to return immediately for re-evaluation. 08/10 18:03 Order name: XRAY Chest (1 view); Complete Time: 19:25 jr8 08/10 17:32 Order name: EKG; Complete Time: 17:33 ll1 08/10 17:32 Order name: EKG - Nurse/Tech; Complete Time: 17:33 ll1 Administered Medications: 19:20 Drug: Ketorolac 30 mg Route: IM; Site: right gluteus; al4 19:41 Follow up: Response: No adverse reaction al4 Disposition: 08/11 18:13 Co-signature as Attending Physician, Javy Weber DO I was immediately available on-site ms3 in the Emergency Department for consultation in the care of the patient.. Disposition Summary: 08/10/21 19:07 Discharge Ordered Location: Home jr8 Problem: new jr8 Symptoms: have improved jr8 Condition: Stable jr8 Diagnosis - Costochondritis jr8 Followup: jr8 - With: Private Physician - When: 2 - 3 days - Reason: Recheck today's complaints, Continuance of care, Re-evaluation by your physician Discharge Instructions: - Discharge Summary Sheet jr8 - Costochondritis jr8 Forms: - Medication Reconciliation Form jr8 - Thank You Letter jr8 - Antibiotic Education jr8 - Prescription Opioid Use jr8 Signatures: Dispatcher [employer] EDMS Khurram Ruelas PA PA jr8 Kathy Syed RN RN ll1 Javy Weber DO DO ms3 Hua Palafox al4 Rosana Farooq, RN RN jg9 Corrections: (The following items were deleted from the chart) 08/10 18:55 18:55 Allergies: NKDA; jg9 jg9
--- NOTE | 2021-08-10 19:08 | ER ---
Nurse's Notes [facility] Name: Cadence Sommer Age: 21 yrs Sex: Female : 2000 Arrival Date: 08/10/2021 Time: 17:10 Bed 13 Private MD: Diagnosis: Costochondritis Presentation: 08/10 17:31 Chief complaint: Patient states: Mid CP and slight SOB off/on for 2 days. Coronavirus ll1 screen: Vaccine status: Patient reports being unvaccinated. Client denies travel out of the [place] in the last 14 days. At this time, the client does not indicate any symptoms associated with coronavirus-19. Ebola Screen: Patient denies travel to an Ebola-affected area in the 21 days before illness onset. Initial Sepsis Screen: Does the patient meet any 2 criteria? No. Patient's initial sepsis screen is negative. Does the patient have a suspected source of infection? No. Patient's initial sepsis screen is negative. Risk Assessment: Do you want to hurt yourself or someone else? Patient reports no desire to harm self or others. Onset of symptoms was August 09, 2021. 17:31 Method Of Arrival: Ambulatory ll1 17:31 Acuity: SYLVIE 3 ll1 Triage Assessment: 17:54 General: Appears in no apparent distress. Behavior is calm, cooperative. Pain: jg9 Complains of pain in chest. Cardiovascular: Reports chest pain, intermittent since yesterday with no associated symptoms. 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 - Social history:: Smoking status: Patient denies any tobacco usage or history of. Screenin:54 Abuse screen: Denies threats or abuse. Denies injuries from another. Nutritional jg9 screening: No deficits noted. Tuberculosis screening: No symptoms or risk factors identified. Fall Risk None identified. Assessment: 17:54 Reassessment: No changes from previously documented assessment. Pain: Complains of pain jg9 in chest Pain does not radiate. Pain began 1 day ago. 19:21 General: Appears in no apparent distress. comfortable, Behavior is calm, cooperative. al4 Pain: Complains of pain in mid-sternal area. Neuro: Level of Consciousness is awake, alert, obeys commands, Oriented to person, place, time, situation. Cardiovascular: Capillary refill < 3 seconds Patient's skin is warm and dry. Respiratory: Airway is patent Respiratory effort is unlabored, Respiratory pattern is symmetrical. Musculoskeletal: Circulation, motion, and sensation intact. 19:41 Reassessment: Patient is alert, oriented x 3, equal unlabored respirations, skin al4 warm/dry/pink. 19:49 Reassessment: patient discharged. while walking to lobby patient stated she felt dizzy al4 and was brought back to the room. VS rechecked and ER PA aware. 19:56 Reassessment: ER PA assessment done at bedside. patient discharged. al4 Vital Signs: 17:31 BP 120 / 76; Pulse 85; Resp 17; Temp 98.0; Pulse Ox 100% ; ll1 17:45 BP 118 / 70; Pulse 71; Resp 14 S; Pulse Ox 100% on R/A; Pain 4/10; jg9 18:45 BP 151 / 78; Pulse 55; Resp 14 S; Pulse Ox 97% on R/A; Pain 4/10; jg9 19:15 BP 115 / 71; Pulse 75; Resp 16 S; Pulse Ox 98% on R/A; al4 19:42 BP 131 / 82; Pulse 79; Resp 16 S; Pulse Ox 99% on R/A; al4 19:49 BP 130 / 74; Pulse 69; Resp 16; Pulse Ox 100% ; al4 ED Course: 17:10 Patient arrived in ED. rg4 17:29 Khurram Ruelas PA is PHCP. jr8 17:29 Javy Weber DO is Attending Physician. jr8 17:30 Arm band placed on Patient placed in an exam room, on a stretcher. ll1 17:32 Triage completed. ll1 17:40 Rosana Farooq, MARGARET is Primary Nurse. jg9 17:55 Patient has correct armband on for positive identification. Bed in low position. Call jg9 light in reach. Side rails up X 1. monitoring engineer on. 17:55 Patient maintains SpO2 saturation greater than 95% on room air. jg9 18:53 No apparent distress. Resting quietly. Awaiting radiology results. jg9 19:02 XRAY Chest (1 view) In Process Unspecified. EDMS 19:23 No provider procedures requiring assistance completed. Patient did not have IV access al4 during this emergency room visit. 19:41 Primary Nurse role handed off by Rosana Farooq, RN mw2 19:45 Attending Physician role handed off by Javy Weber DO vc1 Administered Medications: 19:20 Drug: Ketorolac 30 mg Route: IM; Site: right gluteus; al4 19:41 Follow up: Response: No adverse reaction al4 Outcome: 19:07 Discharge ordered by . mena 19:41 Discharged to home ambulatory. al4 19:41 Condition: stable 19:41 Discharge instructions given to patient, Instructed on discharge instructions, follow up and referral plans. Demonstrated understanding of instructions, follow-up care. 19:43 Patient left the ED. al4 19:56 Patient left the ED. al4 Signatures: Dispatcher [employer] EDMS Khurram Ruelas PA PA jr8 Mariely Jang 4 Marilou Lloyd mw2 Kathy Syed RN RN [email or web address] Hua Palafox alRosana Guevara, MARGARET RN jg9 Francheska Garland RN RN vc1 Corrections: (The following items were deleted from the chart) 18:55 18:55 Allergies: NKDA; jg9 jg9
[2021-08-10] MEDS ORDERED: KETOROLAC 30 MG/ML INJ ONE (19:14)
--- NOTE | 2021-08-10 19:19 | RAD REPORT ---
EXAM DESCRIPTION: [place] Single View08/10/2021 7:00 pm CLINICAL HISTORY: Chest pain COMPARISON: 2018 FINDINGS: The lungs appear clear of acute infiltrate. The heart is normal size IMPRESSION: No acute abnormalities displayed
[2021-08-10 19:49] VITALS: TEMP 98
[2021-08-10 20:06] VITALS: BP 130/74; O2SAT 100
--- NOTE | 2021-08-15 11:28 | EKG ---
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
== END 2021-08-10 19:56 | disposition home or self-care (01) ==
LOC: ER 17:07
DX: M94.0 Chondrocostal junction syndrome [Tietze] (principal); Z88.1 Allergy status to other antibiotic agents; Z88.8 Allergy status to other drugs, medicaments and biological substances; Z91.013 Allergy to seafood; Z91.018 Allergy to other foods
CPT/HCPCS: 71045; 93005; 96372; 99284